=== PATIENT | male | born 1975 | race American Indian/Alaskan Native ===

== ENCOUNTER 2017-07-13 09:15 | Emergency (ER) | payer SELFPAY ==
--- NOTE | 2017-07-13 13:09 | Emergency Department Report ---
ED General Adult HPI - General Chief complaint: Eye Problems Stated complaint: EYE PAIN Time Seen by Provider: 07/13/17 13:03 Source: patient Mode of arrival: Ambulatory Limitations: No Limitations - History of Present Illness Initial comments: Patient is a 41-year-old male no significant past medical history who presents with left eye pain that has been going on for the last 2 days. Patient states that he woke today and he noticed that there was green discharge from his eye and it's very itchy. He states that rubbing makes it worse nothing makes it better. Patients left eye pain is a 5/10 has no vision change no fever no neck pain no nausea or vomiting no pain with extraocular movements. 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 Severity scale (0 -10): 8 - Related Data Home Medications Medication Instructions Recorded Confirmed Last Taken HYDROcodone/APAP 5-325 [[place] 1 each PO Q6HR PRN 03/04/13 03/04/13 03/04/13 12: 00 5/325 mg] Previous Rx's Medication Instructions Recorded Last Taken Type Clindamycin [Clindamycin CAP] 300 mg PO QID #80 capsule 03/04/13 Unknown Rx Hydrocodone Bit/Acetaminophen 1 each PO Q8H PRN #20 tablet 03/04/13 Unknown Rx [Lortab 7.5-500 mg] Ibuprofen [Motrin] 600 mg PO Q8H PRN #60 tablet 03/04/13 Unknown Rx Bacitracin/Polymyxin B Sulfate 3.5 gm OP Q4H #1 oint...g. 07/13/17 Unknown Rx [Bacitracin-Polymyxin Eye Oint] Olopatadine HCl [Pataday] 2 drop OP Q6H PRN #30 ml 07/13/17 Unknown Rx Allergies Allergy/AdvReac Type Severity Reaction Status Date / Time No Known Allergies Allergy Unverified 03/04/13 06:34 ED Review of Systems ROS: Stated complaint: EYE PAIN Other details as noted in HPI Constitutional: denies: chills, fever Eyes: eye pain. denies: eye discharge, vision change ENT: denies: ear pain, throat pain Respiratory: denies: cough, shortness of breath, wheezing Cardiovascular: denies: chest pain, palpitations Endocrine: no symptoms reported Gastrointestinal: denies: abdominal pain, nausea, diarrhea Genitourinary: denies: urgency, dysuria Musculoskeletal: denies: back pain, joint swelling, arthralgia Skin: denies: rash, lesions Neurological: denies: headache, weakness, paresthesias Psychiatric: denies: anxiety, depression Hematological/Lymphatic: denies: easy bleeding, easy bruising ED Past Medical Hx - Past Medical History Previous Medical History?: No - Surgical History Additional Surgical History: L) shoulder surg - Social History Smoking Status: Never Smoker Substance Use Type: None - Medications Home Medications: Home Medications Medication Instructions Recorded Confirmed Last Taken Type Clindamycin [Clindamycin CAP] 300 mg PO QID #80 capsule 03/04/13 Unknown Rx HYDROcodone/APAP 5-325 [[place] 1 each PO Q6HR PRN 03/04/13 03/04/13 03/04/13 12: 00 History 5/325 mg] Hydrocodone Bit/Acetaminophen 1 each PO Q8H PRN #20 tablet 03/04/13 Unknown Rx [Lortab 7.5-500 mg] Ibuprofen [Motrin] 600 mg PO Q8H PRN #60 tablet 03/04/13 Unknown Rx Bacitracin/Polymyxin B Sulfate 3.5 gm OP Q4H #1 oint...g. 07/13/17 Unknown Rx [Bacitracin-Polymyxin Eye Oint] Olopatadine HCl [Pataday] 2 drop OP Q6H PRN #30 ml 07/13/17 Unknown Rx ED Physical Exam - General Limitations: No Limitations General appearance: alert, in no apparent distress - Head Head exam: Present: atraumatic, normocephalic - Eye Eye exam: Present: conjunctival injection (left eye ) - ENT ENT exam: Present: mucous membranes moist - Neck Neck exam: Present: normal inspection - Respiratory Respiratory exam: Present: normal lung sounds bilaterally. Absent: respiratory distress - Cardiovascular Cardiovascular Exam: Present: regular rate, normal rhythm. Absent: systolic murmur, diastolic murmur, rubs, gallop - GI/Abdominal GI/Abdominal exam: Present: soft, normal bowel sounds - Rectal Rectal exam: Present: deferred - Extremities Exam Extremities exam: Present: normal inspection - Back Exam Back exam: Present: normal inspection - Neurological Exam Neurological exam: Present: alert, oriented X3 - Psychiatric Psychiatric exam: Present: normal affect, normal mood - Skin Skin exam: Present: warm, dry, intact, normal color. Absent: rash ED Course Vital Signs 07/13/17 07/13/17 09:17 09:26 Temperature 98.2 F 98.2 F Pulse Rate 88 Respiratory 20 Rate Blood Pressure 140/82 [Right] O2 Sat by Pulse 100 Oximetry ED Medical Decision Making - Medical Decision Making Cdx: Bacterial Conjunctivitis Ddx: Conjunctivitis 2/2 allergies, Viral conjunctivitis I will send patient home with work note antibiotic eye ointment and pataday drops. Discussed plan with patient patient agrees to plan additional verbal discharge instructions were given. Critical care attestation.: If time is entered above; I have spent that time in minutes in the direct care of this critically ill patient, excluding procedure time. ED Disposition Clinical Impression: Conjunctivitis, left eye Qualifiers: Conjunctivitis type: acute Acute conjunctivitis type: unspecified Qualified Code(s): H10.32 - Unspecified acute conjunctivitis, left eye Disposition: DC- TO HOME OR SELFCARE Is pt being admited?: No Does the pt Need Aspirin: No Condition: Stable Instructions: Conjunctivitis (ED) Prescriptions: Bacitracin/Polymyxin B Sulfate [Bacitracin-Polymyxin Eye Oint] 3.5 gm OP Q4H #1 oint...g. Olopatadine HCl [Pataday] 2 drop OP Q6H PRN #30 ml PRN Reason: Itching Referrals: NETO ALMARAZ MD [Staff Physician] - 3-5 Days Forms: Work/School Release Form(ED)
[2017-07-13 13:29] VITALS: BP 139/76
== END 2017-07-13 13:28 | disposition home or self-care (01) ==
LOC: ED 09:15
DX: H10.9 Unspecified conjunctivitis (principal)
CPT/HCPCS: 99282